=== PATIENT | female | born 1950 | race Two or more races ===

== ENCOUNTER → 2017-09-25 | Outpatient (CLI) | payer MEDICARE, MEDICAID ==
[~2017-09-25] MED LIST: COLE1TAB5 PO
== END | disposition home or self-care (01) ==
LOC: STAR 10:12
PROVIDERS: ATTEND Internal Medicine Gastroenterology
DX: Z01.818 Encounter for other preprocedural examination (principal); R94.31 Abnormal electrocardiogram [ECG] [EKG]; K70.2 Alcoholic fibrosis and sclerosis of liver; B18.2 Chronic viral hepatitis C; K83.1 Obstruction of bile duct; K76.6 Portal hypertension
CPT/HCPCS: 93005

== ENCOUNTER → 2017-10-25 | Outpatient (CLI) | payer MEDICARE, MEDICAID | END | disposition home or self-care (01) | LOC: CFH 11:37 | PROVIDERS: ATTEND Internal Medicine Cardiovascular Disease | DX: Z01.810 Encounter for preprocedural cardiovascular examination (principal); I25.89 Other forms of chronic ischemic heart disease | CPT/HCPCS: 78452; 93017; A9502 ==

== ENCOUNTER → 2017-10-26 | Outpatient (CLI) | payer MEDICARE, MEDICAID ==
[~2017-10-26] MED LIST changes: +REGADENOSON 0.4 MG/5 ML SYRINGE ONE
== END | disposition home or self-care (01) ==
LOC: CFH 09:27
PROVIDERS: ATTEND Internal Medicine Cardiovascular Disease
DX: Z01.810 Encounter for preprocedural cardiovascular examination (principal); I08.1 Rheumatic disorders of both mitral and tricuspid valves; I45.10 Unspecified right bundle-branch block; F12.90 Cannabis use, unspecified, uncomplicated; Z87.891 Personal history of nicotine dependence; Z85.3 Personal history of malignant neoplasm of breast
CPT/HCPCS: 93306; J2785

== ENCOUNTER 2017-11-29 10:26 | Day surgery (SDC) | payer MEDICARE, MEDICAID ==
[2017-11-27 09:10] VITALS: BP 150/84
[2017-11-27 09:58] LABS: ANION GAP 8 mmol/L (5-15); CALCIUM 8.9 mg/dL (8.5-10.1); CHLORIDE 107 mmol/L (98-107); CREATININE 0.65 mg/dL (0.55-1.02)
[2017-11-27 10:05] LABS: BASOPHILS # (AUTO) 0.02 x10^3/uL (0-0.1); BASOPHILS % (AUTO) 0 % (0-1); EOSINOPHILS # (AUTO) 0.04 x10^3/uL (0-0.4); EOSINOPHILS % (AUTO) 1 % (1-7); LYMPHOCYTES # (AUTO) 2.03 x10^3/uL (1-3.4); LYMPHOCYTES % (AUTO) 35 % (22-44); MD MORPH REVIEW ONLY; MEAN CORPUSCULAR HEMOGLOBIN 30.1 pg (27.0-34.8); MEAN CORPUSCULAR HGB CONC 33.5 g/dL (32.4-35.8); MEAN CORPUSCULAR VOLUME 89.7 fL (80-100); MEAN PLATELET VOLUME 9.9 fL (7.4-10.4); MONOCYTES # (AUTO) 0.48 x10^3/uL (0.2-0.8); MONOCYTES % (AUTO) 8 % (2-9); NEUTROPHILS # (AUTO) 3.33 x10^3/uL (1.8-6.8); NEUTROPHILS % (AUTO) 56 % (42-75); PLATELET COUNT 94 x10^3/uL (130-400); RED BLOOD COUNT 4.96 x10^6/uL (3.82-5.3); RED CELL DISTRIBUTION WIDTH 13.7 % (9.6-15.2)
[2017-11-27 10:09] LABS: <PLATELET ESTIMATE> DECREASED; <RBC MORPHOLOGY> NORMAL; LARGE PLATELETS 1+
[~2017-11-29] VITALS: Ht 152.4 cm; Wt 68.2 kg
[~2017-11-29 10:26] MED LIST changes: +LISI-167 PO; -REGADENOSON 0.4 MG/5 ML SYRINGE ONE
[2017-11-29] MEDS ORDERED: DIPHENHYDRAMINE 50 MG/ML, 1ML IVPush ONE (11:00)
[2017-11-29] MEDS ORDERED: DIPHENHYDRAMINE 50 MG/ML, 1ML ONE (11:01)
[2017-11-29] MEDS ORDERED: VERAPAMIL 2.5 MG/ML, 2ML ONE (12:20)
[2017-11-29] MEDS ORDERED: LIDOCAINE 2%, 20ML ONE (12:20)
[2017-11-29] MEDS ORDERED: HEPARIN 1,000 UNITS/ML, 10ML ONE (12:20)
[2017-11-29] MEDS ORDERED: MIDAZOLAM 1 MG/ML, 2ML ONE (12:20)
[2017-11-29] MEDS ORDERED: FENTANYL PF 100 MCG/2ML ONE (12:20)
[2017-11-29] MEDS ORDERED: SODIUM CHLORIDE 0.9% 1,000 ML IV SCH (13:24)
== END 2017-11-29 16:24 ==
LOC: CACL 10:26
PROVIDERS: ATTEND Internal Medicine Cardiovascular Disease
DX: R94.31 Abnormal electrocardiogram [ECG] [EKG] (principal); I10 Essential (primary) hypertension; Z85.3 Personal history of malignant neoplasm of breast
CPT/HCPCS: 36415; 71046; 80048; 85025; 93458; 99156; 99157; C1894; J1200; J1644; J2250; J3010; J3490; Q9967

== ENCOUNTER → 2018-02-22 | Outpatient (CLI) | payer MEDICARE, MEDICAID ==
[2018-02-22 14:19] LABS: ALANINE AMINOTRANSFERASE 80 U/L (12-78); ALBUMIN 3.8 g/dL (3.4-5.0); ANION GAP 8 mmol/L (5-15); CALCIUM 9.1 mg/dL (8.5-10.1); CHLORIDE 109 mmol/L (98-107); CREATININE 0.66 mg/dL (0.55-1.02)
[2018-02-22 14:21] LABS: ALKALINE PHOSPHATASE 197 U/L (45-117); BILIRUBIN,TOTAL 0.7 mg/dL (0.2-1.0)
== END | disposition home or self-care (01) ==
LOC: STAR 13:06
PROVIDERS: ATTEND Internal Medicine Gastroenterology
DX: I10 Essential (primary) hypertension (principal); K83.1 Obstruction of bile duct; K70.2 Alcoholic fibrosis and sclerosis of liver; B19.20 Unspecified viral hepatitis C without hepatic coma
CPT/HCPCS: 36415; 80053; 93005

== ENCOUNTER 2018-03-01 10:55 | Day surgery (SDC) | payer MEDICAID, MEDICARE ==
[~2018-03-01] VITALS: Ht 152.4 cm; Wt 65.0 kg
[2018-03-01] MEDS ORDERED: LACTATED RINGERS 1,000 ML IV SCH (11:15)
[2018-03-01 11:36] VITALS: BP 152/90
[2018-03-01] MEDS ORDERED: FENTANYL PF 100 MCG/2ML ONE ×2 (12:52→14:14)
[2018-03-01] MEDS ORDERED: CHLORHEXIDINE 15 ML BOTTLE ONE (12:53)
[2018-03-01] MEDS ORDERED: DEXAMETHASONE 4 MG/ML, 1ML ONE (12:54)
[2018-03-01] MEDS ORDERED: PROPOFOL 10 MG/ML, 20ML ONE (12:54)
[2018-03-01] MEDS ORDERED: ROCURONIUM 10 MG/ML,10ML ONE (12:54)
[2018-03-01] MEDS ORDERED: SUCCINYLCHOLINE 20 MG/ML, 10ML ONE (12:54)
[2018-03-01] MEDS ORDERED: PROMETHAZINE 12.5 MG SUPP PR PRN (13:30)
[2018-03-01] MEDS ORDERED: LABETALOL 5MG/ML, 20ML IV PRN (13:30)
[2018-03-01] MEDS ORDERED: morphine SULFATE 10 MG/ML, 1ML IV PRN (13:30)
[2018-03-01] MEDS ORDERED: ALBUTEROL SULFATE 2.5 MG/3 ML NPPB PRN (13:30)
[2018-03-01] MEDS ORDERED: OXYcodone 5 MG/5 ML ORAL.SOL UDC PO PRN (13:30)
[2018-03-01] MEDS ORDERED: hydrALAzine 20 MG/ML, 1ML IV PRN (13:30)
[2018-03-01] MEDS ORDERED: MIDAZOLAM 1 MG/ML, 2ML IV PRN (13:30)
[2018-03-01] MEDS ORDERED: FENTANYL PF 100 MCG/2ML IV PRN (13:30)
[2018-03-01] MEDS ORDERED: ONDANSETRON 2MG/ML, 2ML IVPush PRN (13:30)
[2018-03-01] MEDS ORDERED: MEPERIDINE/PF 25MG/0.5ML IVPush PRN (13:30)
[2018-03-01] MEDS ORDERED: MIDAZOLAM 1 MG/ML, 2ML ONE (14:22)
== END 2018-03-01 16:45 | disposition home or self-care (01) ==
LOC: OUT 10:55
PROVIDERS: ATTEND Internal Medicine Gastroenterology
DX: K29.50 Unspecified chronic gastritis without bleeding (principal); K21.9 Gastro-esophageal reflux disease without esophagitis; B18.2 Chronic viral hepatitis C
CPT/HCPCS: 43239; 43259; 88305; J0330; J1100; J2250; J2704; J3010; J7120

== ENCOUNTER → 2020-01-08 | Outpatient (CLI) | payer MEDICARE, MEDICAID | END | disposition home or self-care (01) | LOC: CVU 13:52 | PROVIDERS: ATTEND Registered Nurse | DX: Z01.810 Encounter for preprocedural cardiovascular examination (principal); R94.31 Abnormal electrocardiogram [ECG] [EKG]; I36.1 Nonrheumatic tricuspid (valve) insufficiency | CPT/HCPCS: 93306; 93356 ==